=== PATIENT | female | born 1960 | race Caucasian/White ===

== ENCOUNTER 2021-05-23 06:37 | Day surgery (SDC) | payer OTHER, SELFPAY ==
[~2021-05-23] VITALS: Ht 157.5 cm; Wt 77.1 kg
[2021-05-23] MEDS ORDERED: MIDAZOLAM HCL 5 MG/5 ML VIAL ONE (08:05)
[2021-05-23] MEDS ORDERED: MEPERIDINE 100 MG INJ. 100 MG/ML VIAL ONE (08:05)
[2021-05-23 11:45] VITALS: BP_SYST 134
== END 2021-05-23 10:12 | disposition home or self-care (01) ==
LOC: SDS 06:37 → SMU 06:38 → SDS 10:12
PROVIDERS: ATTEND Internal Medicine Gastroenterology
DX: R10.9 Unspecified abdominal pain (principal); K31.7 Polyp of stomach and duodenum; K29.50 Unspecified chronic gastritis without bleeding; K29.80 Duodenitis without bleeding; E11.9 Type 2 diabetes mellitus without complications; R19.4 Change in bowel habit; I10 Essential (primary) hypertension; Z79.899 Other long term (current) drug therapy; Z20.822 Contact with and (suspected) exposure to COVID-19
CPT/HCPCS: 36415; 43239; 43251; 82962; 87081; 88305; 88312; 88313; 99152; G0378; J2175; J2250; U0003

== ENCOUNTER 2022-10-13 20:46 | Emergency (ER) | payer OTHER ==
[~2022-10-13] VITALS: Ht 157.5 cm; Wt 81.6 kg
[2022-10-13 20:50] VITALS: BP_SYST 192
[2022-10-13] MEDS ORDERED: ENALAPRILAT DIHYDRATE 1.25 MG/ML VIAL IVP ONE (21:15)
[2022-10-13] MEDS ORDERED: ACETAMINOPHEN I.V. 1000 MG 100 ML IV ONE ×2 (21:15→21:48)
[2022-10-13 21:35] LABS: BASOPHILS % (AUTO) 0.6 % (0.0-2.0); EOSINOPHILS # (AUTO) 0.3 K/uL (0.0-0.4); EOSINOPHILS % (AUTO) 3.8 % (0.0-4.0); HEMATOCRIT 41.5 % (36-48); HEMOGLOBIN 14.2 g/dL (12.0-16.0); LYMPHOCYTES # (AUTO) 2.6 K/uL (1.0-5.5); LYMPHOCYTES % (AUTO) 38.9 % (20.5-51.5); MEAN CORPUSCULAR HEMOGLOBIN 30 pg (27-31); MEAN CORPUSCULAR HGB CONC 34 % (32-36); MEAN CORPUSCULAR VOLUME 88 fL (79.0-98.0); MONOCYTES # (AUTO) 0.5 K/uL (0.0-1.0); MONOCYTES % (AUTO) 7.5 % (1.7-9.3); NEUTROPHILS # (AUTO) 3.3 K/uL (1.8-7.7); NEUTROPHILS % (AUTO) 49.2 % (40.0-70.0); PLATELET COUNT (AUTO) 196 K/uL (130-430); RED BLOOD CELL COUNT(AUTO) 4.72 MIL/uL (4.2-6.2); RED CELL DISTRIBUTION WIDTH 13.1 % (9.0-15.0); WHITE BLOOD COUNT (AUTO) 6.7 K/uL (4.8-10.8)
[2022-10-13 21:51] LABS: ANION GAP 6 (5-15); CALCIUM 9.4 mg/dL (8.4-11.0); CHLORIDE 102 mmol/L (98-107); CREATININE 0.67 mg/dL (0.55-1.30); GFR AFRICAN AMERICAN 115 mL/min (>90); GLUCOSE 207 mg/dL (70-99); UREA NITROGEN, BLOOD 14 mg/dL (8-21)
[2022-10-13 21:59] LABS: ALANINE AMINOTRANSFERASE 22 U/L (12-78); ALBUMIN 3.7 g/dL (3.4-4.8); ASPARTATE AMINOTRANSFERASE 9 U/L (10-37); TOTAL BILIRUBIN 0.4 mg/dL (0.0-1.0)
[2022-10-14] MEDS ORDERED: LISI10TA29 PO (00:31)
[2022-10-14 00:50] VITALS: BP_SYST 130
== END 2022-10-14 00:50 | disposition home or self-care (01) ==
LOC: SED 20:46
DX: R51.9 Headache, unspecified (principal); R03.0 Elevated blood-pressure reading, without diagnosis of hypertension; E11.9 Type 2 diabetes mellitus without complications; R11.0 Nausea; Z79.899 Other long term (current) drug therapy
CPT/HCPCS: 99285; 96365; 70450; 96375; 80053; 85025; 84484; 36415; 76376; J0131; 93005

== ENCOUNTER 2022-10-15 09:36 | Emergency (ER) | payer OTHER ==
[~2022-10-15] VITALS: Ht 157.5 cm; Wt 81.6 kg
[~2022-10-15 09:36] MED LIST: LISI10TA29 PO
[2022-10-15 09:50] VITALS: BP_SYST 183
--- NOTE | 2022-10-15 09:50 | NUR ---
Patient triaged and placed in waiting room. VSS and patient appears in no acute distress at this time. Accompanied by FAMILY, awaiting available bed, and MD notified of need for MSE.
--- NOTE | 2022-10-15 11:10 | NUR ---
CALLED FOR BED PLACEMENT, UNABLE TO LOCATE
--- NOTE | 2022-10-15 11:15 | NUR ---
CALLED FOR BED PLACEMENT, UNABLE TO LOCATE PT
--- NOTE | 2022-10-15 11:20 | NUR ---
PT IS LWBS
--- NOTE | 2022-10-15 11:46 | NUR ---
Yanet hobbs in [facility] - 10/15/22 at 1151 by [email or web address] Patient to [facility] 03 to gato for evaluation. Side rails up.
== END 2022-10-15 11:20 | disposition left against medical advice (07) ==
LOC: SED 09:36
DX: R51.9 Headache, unspecified (principal); R11.2 Nausea with vomiting, unspecified; Z53.21 Procedure and treatment not carried out due to patient leaving prior to being seen by health care provider
CPT/HCPCS: 99281

== ENCOUNTER 2022-10-17 17:29 | Emergency (ER) | payer OTHER ==
[~2022-10-17] VITALS: Ht 157.5 cm; Wt 81.6 kg
[2022-10-17 17:46] VITALS: BP_SYST 183
[2022-10-17] MEDS ORDERED: TRAM50TA2 PO (20:10)
[2022-10-17] MEDS ORDERED: ONDA-8 TL (20:12)
[2022-10-17 20:25] VITALS: BP_SYST 183
== END 2022-10-17 20:25 | disposition home or self-care (01) ==
LOC: SED 17:29
DX: I10 Essential (primary) hypertension (principal); R51.9 Headache, unspecified; E11.9 Type 2 diabetes mellitus without complications; Z79.899 Other long term (current) drug therapy
CPT/HCPCS: 99283

== ENCOUNTER 2023-02-28 09:32 | Emergency (ER) | payer OTHER ==
[~2023-02-28] VITALS: Ht 157.5 cm; Wt 82.6 kg
[~2023-02-28 09:32] MED LIST changes: +ONDA-8 TL; +TRAM50TA2 PO
[2023-02-28 09:41] VITALS: BP_SYST 143; PULSE 84; RESP 18; TEMP 98.3; O2SAT 98
[2023-02-28 09:47] VITALS: RESP 18; TEMP 97.3
[2023-02-28] MEDS ORDERED: NACL 0.9% 1,000 ML IV ONE (10:30)
[2023-02-28 10:55] LABS: BASOPHILS % (AUTO) 0.8 % (0.0-2.0); EOSINOPHILS # (AUTO) 0.1 K/uL (0.0-0.4); EOSINOPHILS % (AUTO) 2.2 % (0.0-4.0); HEMATOCRIT 46.3 % (36-48); HEMOGLOBIN 14.8 g/dL (12.0-16.0); LYMPHOCYTES # (AUTO) 1.9 K/uL (1.0-5.5); LYMPHOCYTES % (AUTO) 32.7 % (20.5-51.5); MEAN CORPUSCULAR HEMOGLOBIN 29 pg (27-31); MEAN CORPUSCULAR HGB CONC 32 % (32-36); MEAN CORPUSCULAR VOLUME 89 fL (79.0-98.0); MONOCYTES # (AUTO) 0.3 K/uL (0.0-1.0); NEUTROPHILS # (AUTO) 3.3 K/uL (1.8-7.7); NEUTROPHILS % (AUTO) 58.3 % (40.0-70.0); PLATELET COUNT (AUTO) 188 K/uL (130-430); RED BLOOD CELL COUNT(AUTO) 5.19 MIL/uL (4.2-6.2); RED CELL DISTRIBUTION WIDTH 13.4 % (9.0-15.0); WHITE BLOOD COUNT (AUTO) 5.7 K/uL (4.8-10.8)
[2023-02-28 11:03] LABS: BILIRUBIN,URINE 1+ (NEGATIVE); BLOOD, URINE NEGATIVE (NEGATIVE); CLARITY/URINE SLIGHTLY HAZY (CLEAR); COLOR,URINE YELLOW (YELLOW); GLUCOSE,URINE NEGATIVE (NEGATIVE); KETONES,URINE TRACE (NEGATIVE); LEUKOCYTE ESTERASE ,URINE 2+ (NEGATIVE); PROTEIN URINE 2+ (NEGATIVE)
[2023-02-28 11:04] LABS: NITRITE, URINE NEGATIVE (NEGATIVE); UROBILINOGEN,URINE >=8 (0.2-1.0)
[2023-02-28 11:05] LABS: BACTERIA,URINE RARE /HPF (None Seen); MUCUS,URINE 1+ /LPF (None Seen); RBC,URINE 0-3 /HPF (0-3)
[2023-02-28 11:06] LABS: COVID19 ANTIGEN SOFIA FIA NEGATIVE (NEGATIVE)
[2023-02-28 11:08] LABS: CREATININE 0.69 mg/dL (0.55-1.30); POTASSIUM 3.5 mmol/L (3.5-5.1)
[2023-02-28 11:13] LABS: ALBUMIN 3.7 g/dL (3.4-4.8); TOTAL BILIRUBIN 0.8 mg/dL (0.0-1.0); TOTAL PROTEIN, SERUM 7.3 g/dL (6.4-8.3)
[2023-02-28 11:22] LABS: INFLUENZA TYPE A negative (NEGATIVE); INFLUENZA TYPE B NEGATIVE (NEGATIVE)
[2023-02-28] MEDS ORDERED: POLY17PO4 PO (11:29)
[2023-02-28] MEDS ORDERED: CEPH-548 PO (11:29)
[2023-02-28] MEDS ORDERED: ONDA-8 TL (11:29)
[2023-02-28] MEDS ORDERED: cefTRIAXone 1 GM IVPB PREMIX 50 ML IV ONE (11:30)
[2023-02-28 12:14] VITALS: BP_SYST 158; PULSE 88; O2SAT 98
== END 2023-02-28 12:13 | disposition home or self-care (01) ==
LOC: SED 09:32
DX: N39.0 Urinary tract infection, site not specified (principal); K59.00 Constipation, unspecified; R11.10 Vomiting, unspecified; E11.9 Type 2 diabetes mellitus without complications; Z79.899 Other long term (current) drug therapy; Z20.822 Contact with and (suspected) exposure to COVID-19
CPT/HCPCS: 99284; 96365; 96361; 87426; 80053; 81000; 83690; 85025; 87086; 36415; 87804 ×2; J0696; J7030

== ENCOUNTER 2023-05-11 18:53 | Emergency (ER) | payer OTHER ==
[~2023-05-11] VITALS: Ht 157.5 cm; Wt 70.8 kg
[~2023-05-11 18:53] MED LIST changes: +CEPH-548 PO; +DIPH25CA83 PO; +POLY17PO4 PO; +PRED20TA PO
[2023-05-11 19:31] VITALS: PULSE 61; RESP 17; O2SAT 98
[2023-05-11] MEDS ORDERED: EPINEPHRINE HCL/PF 1 MG/ML AMP IM ONE (19:45)
[2023-05-11 19:58] VITALS: BP_SYST 135; PULSE 61; RESP 17; TEMP 97.8; O2SAT 98
== END 2023-05-11 19:58 | disposition home or self-care (01) ==
LOC: SED 18:53
DX: S20.469A Insect bite (nonvenomous) of unspecified back wall of thorax, initial encounter (principal); L30.8 Other specified dermatitis; E11.9 Type 2 diabetes mellitus without complications; Z79.899 Other long term (current) drug therapy; W57.XXXA Bitten or stung by nonvenomous insect and other nonvenomous arthropods, initial encounter; Y93.89 Activity, other specified; Y92.89 Other specified places as the place of occurrence of the external cause; Y99.8 Other external cause status
CPT/HCPCS: 99283; 96372; J0171

== ENCOUNTER 2023-06-15 17:02 | Emergency (ER) | payer OTHER ==
[~2023-06-15] VITALS: Ht 157.5 cm; Wt 73.5 kg
[2023-06-15 17:10] VITALS: BP_SYST 143; PULSE 90; RESP 19; TEMP 98; O2SAT 98
[2023-06-15] MEDS ORDERED: METOCLOPRAMIDE HCL 10 MG/2 ML VIAL IVP ONE (17:45)
[2023-06-15] MEDS ORDERED: DIPHENHYDRAMINE INJ 50 MG/ML VIAL IVP ONE (17:45)
[2023-06-15 18:00] LABS: BASOPHILS % (AUTO) 0.4 % (0.0-2.0); EOSINOPHILS # (AUTO) 0.1 K/uL (0.0-0.4); EOSINOPHILS % (AUTO) 1.4 % (0.0-4.0); HEMATOCRIT 41.2 % (36-48); HEMOGLOBIN 13.4 g/dL (12.0-16.0); LYMPHOCYTES # (AUTO) 1.7 K/uL (1.0-5.5); LYMPHOCYTES % (AUTO) 19.5 % (20.5-51.5); MEAN CORPUSCULAR HEMOGLOBIN 29 pg (27-31); MEAN CORPUSCULAR HGB CONC 33 % (32-36); MEAN CORPUSCULAR VOLUME 89 fL (79.0-98.0); MONOCYTES # (AUTO) 0.6 K/uL (0.0-1.0); MONOCYTES % (AUTO) 7.1 % (1.7-9.3); NEUTROPHILS # (AUTO) 6.2 K/uL (1.8-7.7); NEUTROPHILS % (AUTO) 71.6 % (40.0-70.0); PLATELET COUNT (AUTO) 215 K/uL (130-430); RED BLOOD CELL COUNT(AUTO) 4.64 MIL/uL (4.2-6.2); RED CELL DISTRIBUTION WIDTH 13.6 % (9.0-15.0); WHITE BLOOD COUNT (AUTO) 8.7 K/uL (4.8-10.8)
[2023-06-15 18:03] LABS: ERYTHROCYTE SEDIMENTATION RATE 26 MM/HR (0-20)
[2023-06-15 18:11] LABS: PROTHROMBIN TIME 10.4 SECS (9.5-12.5)
[2023-06-15 18:53] LABS: CALCIUM 9.4 mg/dL (8.4-11.0); CREATININE 0.76 mg/dL (0.55-1.30); POTASSIUM 3.7 mmol/L (3.5-5.1)
[2023-06-15] MEDS ORDERED: AUG875 PO (20:39)
[2023-06-15] MEDS ORDERED: NAPR-1172 PO (20:40)
[2023-06-15 20:45] VITALS: BP_SYST 115; PULSE 84; RESP 18; TEMP 98.5; O2SAT 98
[2023-06-16] MEDS ORDERED: TRAM50TA2 PO ×2 (16:32→16:36)
[2023-06-16] MEDS ORDERED: CORTEARS RIGHT EAR ×2 (16:32→16:36)
== END 2023-06-15 20:50 | disposition home or self-care (01) ==
LOC: SED 17:02
DX: R51.9 Headache, unspecified (principal); H60.91 Unspecified otitis externa, right ear; E11.9 Type 2 diabetes mellitus without complications; Z79.899 Other long term (current) drug therapy
CPT/HCPCS: 99284; 96374; 96375; 80048; 85025; 85610; 85651; 85730; 36415; 82397; J1200; J2765

== ENCOUNTER 2023-06-16 14:34 | Emergency (ER) | payer OTHER ==
[~2023-06-16] VITALS: Ht 162.6 cm; Wt 63.5 kg
[~2023-06-16 14:34] MED LIST changes: +AUG875 PO; +NAPR-1172 PO
[2023-06-16 14:40] VITALS: BP_SYST 133; PULSE 82; RESP 18; TEMP 97.5; O2SAT 97
[2023-06-16] MEDS ORDERED: IBUPROFEN 800 MG TABLET PO ONE (15:00)
[2023-06-16] MEDS ORDERED: traMADol HCL HCL 50 MG TABLET (ULTRAM) PO ONE (15:00)
[2023-06-16 15:35] LABS: BASOPHILS % (AUTO) 0.3 % (0.0-2.0); EOSINOPHILS # (AUTO) 0.1 K/uL (0.0-0.4); EOSINOPHILS % (AUTO) 1.1 % (0.0-4.0); HEMATOCRIT 41.1 % (36-48); HEMOGLOBIN 13.7 g/dL (12.0-16.0); LYMPHOCYTES # (AUTO) 1.8 K/uL (1.0-5.5); MEAN CORPUSCULAR HEMOGLOBIN 29 pg (27-31); MEAN CORPUSCULAR HGB CONC 33 % (32-36); MEAN CORPUSCULAR VOLUME 88 fL (79.0-98.0); MONOCYTES # (AUTO) 0.6 K/uL (0.0-1.0); MONOCYTES % (AUTO) 7.1 % (1.7-9.3); NEUTROPHILS # (AUTO) 6.4 K/uL (1.8-7.7); NEUTROPHILS % (AUTO) 71.5 % (40.0-70.0); PLATELET COUNT (AUTO) 219 K/uL (130-430); RED BLOOD CELL COUNT(AUTO) 4.68 MIL/uL (4.2-6.2); RED CELL DISTRIBUTION WIDTH 13.3 % (9.0-15.0); WHITE BLOOD COUNT (AUTO) 8.9 K/uL (4.8-10.8)
[2023-06-16 15:41] LABS: ERYTHROCYTE SEDIMENTATION RATE 50 MM/HR (0-20)
[2023-06-16 15:57] LABS: CALCIUM 10.2 mg/dL (8.4-11.0); CREATININE 0.91 mg/dL (0.55-1.30); POTASSIUM 3.3 mmol/L (3.5-5.1)
[2023-06-16] MEDS ORDERED: LIDOCAINE 2% JELLY UROJECT 10 ML MM ONE (16:30)
[2023-06-16] MEDS ORDERED: CORTEARS RIGHT EAR ×2 (16:32→16:36)
[2023-06-16] MEDS ORDERED: TRAM50TA2 PO ×2 (16:32→16:36)
[2023-06-16] MEDS ORDERED: MORPHINE 4 MG INJ. 4 MG/ML VIAL IM ONE (16:45)
[2023-06-16 17:14] VITALS: BP_SYST 117; PULSE 113; RESP 17; TEMP 98.1; O2SAT 96
== END 2023-06-16 17:14 | disposition home or self-care (01) ==
LOC: SED 14:34
DX: H60.91 Unspecified otitis externa, right ear (principal); E11.9 Type 2 diabetes mellitus without complications; Z79.899 Other long term (current) drug therapy
CPT/HCPCS: 99285; 70450; 80048; 85025; 85651; 36415; 76376; 96372; 82397; J2270

== ENCOUNTER 2023-06-25 12:10 | Emergency (ER) | payer OTHER ==
[~2023-06-25] VITALS: Ht 162.6 cm; Wt 65.8 kg
[~2023-06-25 12:10] MED LIST changes: +CORTEARS RIGHT EAR
[2023-06-25 12:21] VITALS: BP_SYST 150; PULSE 104; RESP 18; O2SAT 98
[2023-06-25] MEDS ORDERED: IBUP-1969 PO (14:48)
[2023-06-25] MEDS ORDERED: SOM350 PO (14:48)
[2023-06-25 15:15] VITALS: BP_SYST 150; PULSE 104; RESP 18; TEMP 98.3; O2SAT 98
== END 2023-06-25 15:15 | disposition home or self-care (01) ==
LOC: SED 12:10
DX: S13.4XXA Sprain of ligaments of cervical spine, initial encounter (principal); E11.9 Type 2 diabetes mellitus without complications; Z79.899 Other long term (current) drug therapy; V89.2XXA Person injured in unspecified motor-vehicle accident, traffic, initial encounter; Y93.89 Activity, other specified; Y92.89 Other specified places as the place of occurrence of the external cause; Y99.8 Other external cause status
CPT/HCPCS: 72040-TC; 99283

== ENCOUNTER 2024-01-18 14:26 | Emergency (ER) | payer OTHER ==
[~2024-01-18] VITALS: Ht 157.5 cm; Wt 69.4 kg
[~2024-01-18 14:26] MED LIST changes: +ACET-2634 PO; +DICY-14 PO; +IBUP-1969 PO; +SOM350 PO
[2024-01-18 14:40] VITALS: BP_SYST 173; PULSE 80; RESP 18; TEMP 97.8; O2SAT 97
[2024-01-18] MEDS: NACL 0.9% 1,000 ML IV ONE (16:02)
[2024-01-18 16:16] LABS: BASOPHILS % (AUTO) 0.4 % (0.0-2.0); EOSINOPHILS # (AUTO) 0.1 K/uL (0.0-0.4); EOSINOPHILS % (AUTO) 2.3 % (0.0-4.0); HEMATOCRIT 39.9 % (36-48); HEMOGLOBIN 13.6 g/dL (12.0-16.0); LYMPHOCYTES # (AUTO) 1.8 K/uL (1.0-5.5); LYMPHOCYTES % (AUTO) 28.2 % (20.5-51.5); MEAN CORPUSCULAR HEMOGLOBIN 30 pg (27-31); MEAN CORPUSCULAR HGB CONC 34 % (32-36); MEAN CORPUSCULAR VOLUME 88 fL (79.0-98.0); MONOCYTES # (AUTO) 0.4 K/uL (0.0-1.0); MONOCYTES % (AUTO) 6.5 % (1.7-9.3); NEUTROPHILS % (AUTO) 62.6 % (40.0-70.0); PLATELET COUNT (AUTO) 225 K/uL (130-430); RED BLOOD CELL COUNT(AUTO) 4.55 MIL/uL (4.2-6.2); WHITE BLOOD COUNT (AUTO) 6.3 K/uL (4.8-10.8)
[2024-01-18] MEDS: LORazepam 2 MG/ML VIAL IVP ONE (16:41)
[2024-01-18 16:44] LABS: ANION GAP 7 (5-15); CALCIUM 9.3 mg/dL (8.4-11.0); CARBON DIOXIDE 31 mmol/L (23-29); CHLORIDE 105 mmol/L (98-107); CREATININE 0.63 mg/dL (0.55-1.30); GFR AFRICAN AMERICAN 124 mL/min (>90); GFR NON AFRICAN-AMERICAN 102 mL/min (>90); GLUCOSE 107 mg/dL (74-106); POTASSIUM 3.4 mmol/L (3.5-5.1); SODIUM SERUM 143 mmol/L (136-145); UREA NITROGEN, BLOOD 16 mg/dL (8-21)
[2024-01-18] MEDS ORDERED: LORA-258 PO (18:56)
[2024-01-18 19:00] VITALS: BP_SYST 173; PULSE 80; RESP 18; TEMP 97.8; O2SAT 97
== END 2024-01-18 19:00 | disposition home or self-care (01) ==
LOC: SED 14:26
DX: R55 Syncope and collapse (principal); F41.9 Anxiety disorder, unspecified; E11.9 Type 2 diabetes mellitus without complications; Z98.890 Other specified postprocedural states; Z79.899 Other long term (current) drug therapy; Z79.2 Long term (current) use of antibiotics
CPT/HCPCS: 99285; 96374; 96361; 70450; 71045; 80048; 85025; 84484; 36415; 93005; 82948; J2060; J7030